=== PATIENT | male | born 1975 | race Caucasian/White ===

== ENCOUNTER 2020-11-03 18:20 | Outpatient (REF) | payer SELFPAY ==
[2020-11-03 13:10] LABS: HCT 48.6 % (40.0-50.0); HGB 16.4 g/dL (13.5-17.5); MCH 33.1 pg (27.0-33.0); MCHC 33.7 % (32.0-36.0); Platelet Count 295 10^3/uL (130-400); RBC 4.96 10^6/uL (4.36-5.78); RDW 11.9 % (11.8-14.1); RDW-SD 42.9 fL; WBC 6.99 10^3/uL (4.4-10.8)
[2020-11-03 13:34] LABS: Anion Gap 8.6 mmol/L (3-11); BUN 11 mg/dL (7-18); CO2 28.4 mmol/L (21.0-32.0); CREATININE 0.9 mg/dL (0.70-1.30); Calculated LDL 110 mg/dL (<100); Chloride 105 mmol/L (98-107); Cholesterol 186 mg/dL (<200); Glucose 85 mg/dL (74-106); HDL Cholesterol 59 mg/dL (40-60); Potassium 5.3 mmol/L (3.5-5.1); Sodium 142 mmol/L (136-145); Triglyceride 85 mg/dL (<150)
[2020-11-04 14:59] LABS: ANA Interpretation Positive (Negative); ANA Titer Pattern 1:160 Speckled
== END 2020-11-03 18:21 | disposition home or self-care (01) ==
LOC: NCHCN 18:20
PROVIDERS: Visit Provider Physician Assistant
DX: L20.9 Atopic dermatitis, unspecified (principal)
CPT/HCPCS: 80048; 80061; 85027; 86038; 86225

== ENCOUNTER 2020-12-09 12:13 | Outpatient (REF) | payer SELFPAY ==
--- NOTE | 2020-12-09 10:05 | SKI_PTH ---
PATIENT: Robert Pressley JR LOC: [facility]#:[id number] AGE/SX: 45/M ROOM: RE12/09/[address]: Ye Pierce : 1975 BED: DIS: 12/09/2020 SPEC #: [id number] RECD: 12/09/20 17:50 STATUS: NINFA REOskar #: [id number] SAUL: 12/09/20 10:[address]: Ye Pierce DEPT: Surgical Specimen RECD BY: Priti Zhu ENTERED: 12/09/20 17:51 SP TYPE: ALBINA UNDERWOOD DR: None Tissues: 1 - SKIN BIOPSY(SHAVE/PUNCH) Procedures: SKIN LEVEL 4 SPECIAL STAIN 1 Comments: [id number]
== END 2020-12-09 12:14 | disposition home or self-care (01) ==
LOC: NCHCN 12:13
PROVIDERS: Visit Provider Physician Assistant
DX: L30.8 Other specified dermatitis (principal); I87.2 Venous insufficiency (chronic) (peripheral)
CPT/HCPCS: 88305; 88312

== ENCOUNTER 2023-10-13 14:35 | Outpatient (REF) | payer SELFPAY ==
[2023-10-13 21:28] LABS: Abs Immature Grans 0.04 10^3/uL (0.0-0.06); Absolute Basophil Count 0.04 10^3/uL (0.0-0.2); Absolute Eosinophil Count 0.14 10^3/uL (0.0-0.7); Absolute Lymphocyte Count 1.27 10^3/uL (1.2-3.4); Absolute Monocyte Count 0.61 10^3/uL (0.1-0.8); Absolute Neutrophil Count 4.62 10^3/uL (1.2-6.7); Basophils % 0.6; Eosinophils % 2.1; HGB 16.7 g/dL (13.5-17.5); Immature Grans % 0.6; Lymphocytes % 18.9; MCH 32.8 pg (27.0-33.0); MCHC 33.4 % (32.0-36.0); MCV 98 fL (80-95); MPV 10.1 fL (8.0-11.0); Monocytes % 9.1; Neutrophils % 68.7; Platelet Count 316 10^3/uL (130-400); RBC 5.09 10^6/uL (4.36-5.78); RDW 11.9 % (11.8-14.1); RDW-SD 43.7 fL; WBC 6.72 10^3/uL (4.4-10.8)
[2023-10-13 21:39] LABS: ALT 34 U/L (16-63); AST 18 U/L (15-37); Albumin 4.1 g/dL (3.4-5.0); Alkaline Phosphatase 74 U/L (46-116); Anion Gap 10.2 mmol/L (3-11); BUN 14 mg/dL (7-18); Bilirubin, Total 0.6 mg/dL (0.2-1.0); CO2 25.8 mmol/L (21.0-32.0); CREATININE 0.8 mg/dL (0.70-1.30); Calcium 8.9 mg/dL (8.5-10.1); Chloride 103 mmol/L (98-107); Estimated GFR 111.22 (mL/min/1.73m2); Glucose 89 mg/dL (74-106); Potassium 4.7 mmol/L (3.5-5.1); Sodium 139 mmol/L (136-145)
[2023-10-13 21:40] LABS: C-Reactive Protein < 0.50 mg/dL (<or=0.5)
== END 2023-10-13 14:36 | disposition home or self-care (01) ==
LOC: LBN 14:35
PROVIDERS: Visit Provider Nurse Practitioner Family
DX: T14.8XXA Other injury of unspecified body region, initial encounter (principal); L08.9 Local infection of the skin and subcutaneous tissue, unspecified; L98.9 Disorder of the skin and subcutaneous tissue, unspecified; B96.89 Other specified bacterial agents as the cause of diseases classified elsewhere
CPT/HCPCS: 80053; 85025; 86140; 87070; 87205

== ENCOUNTER → 2023-10-18 02:35 | Outpatient (CLI) | payer SELFPAY ==
--- NOTE | 2023-10-18 14:11 | DI.RAD_ITS ---
Exam(s) XR ANKLE RT COMPLETE EXAM: XR ANKLE RT COMPLETE CLINICAL HISTORY: evaluate osteomyletis vs other etiology,wound infection,T14.8xxa,L08.9. TECHNIQUE: 2D digital imaging was performed of the right ankle. Three images were obtained. AP, la teral and oblique views were obtained. COMPARISON: No exams were available for comparison FINDINGS: BONES: No acute fracture is present. No bony destructive lesion is seen. There is a small plantar ca lcaneal spur. There is a small enthesophyte at the posterior calcaneus. JOINTS: The ankle mortise is normally aligned. SOFT TISSUE: Vascular calcifications are present. IMPRESSION: Unremarkable radiographs of the right ankle. No findings to suggest osteomyelitis. DATA REPOSITORY: RADIATION DOSE DELIVERED:
== END ==
PROVIDERS: Visit Provider Nurse Practitioner Family
DX: M25.571 Pain in right ankle and joints of right foot (principal); M77.31 Calcaneal spur, right foot; L08.89 Other specified local infections of the skin and subcutaneous tissue; S99.811A Other specified injuries of right ankle, initial encounter
CPT/HCPCS: 73610

== ENCOUNTER 2024-10-31 10:49 | Outpatient (CLI) | payer BC, SELFPAY ==
[2024-10-31 10:15] LABS: HGB 16.2 g/dL (13.5-17.5); MCH 33.3 pg (27.0-33.0); MCHC 33.8 % (32.0-36.0); MCV 99 fL (80-95); MPV 9.1 fL (8.0-11.0); Platelet Count 259 10^3/uL (130-400); RBC 4.86 10^6/uL (4.36-5.78); RDW 12.1 % (11.8-14.1); RDW-SD 44.2 fL; WBC 5.47 10^3/uL (4.4-10.8)
[2024-10-31 10:17] LABS: Bilirubin Negative (Negative); Blood Negative (Negative); Clarity Clear (Clear); Glucose Negative (Negative); Ketones Negative (Negative); Leukocyte Esterase Negative (Negative); Nitrite Negative (Negative); Urobilinogen 0.2 mg/dL (Up to 0.2)
[2024-10-31 10:27] LABS: Bacteria Negative HPF (Negative); C & S Indicated? No; Casts 0-2 Hyaline LPF (Negative); Crystals Negative HPF (Negative); Epithelial Cells Rare HPF (Negative); Mucus Trace (Negative); RBC 0-2 HPF (0-2); WBC Negative HPF (0-5)
[2024-10-31 10:47] LABS: ALT 36 U/L (16-63); AST 24 U/L (15-37); Alkaline Phosphatase 80 U/L (46-116); BUN 8 mg/dL (7-18); Bilirubin, Direct 0.2 mg/dL (0.0-0.2); Bilirubin, Total 0.8 mg/dL (0.2-1.0); CREATININE 0.8 mg/dL (0.70-1.30); Calcium 9.4 mg/dL (8.5-10.1); Chloride 105 mmol/L (98-107); Estimated GFR 110.53 (mL/min/1.73m2); Glucose 138 mg/dL (74-106); Potassium 4.1 mmol/L (3.5-5.1); Sodium 140 mmol/L (136-145); Total Protein 8.3 g/dL (6.4-8.2)
== END 2024-10-31 10:50 | disposition home or self-care (01) ==
LOC: LBO 10:51
PROVIDERS: PCP Physician Assistant; Visit Provider Nurse Practitioner Family
DX: Z13.9 Encounter for screening, unspecified (principal)
CPT/HCPCS: 36415; 80069; 80076; 85027; 81003; 81015

== ENCOUNTER 2024-11-07 02:28 | Outpatient (CLI) | payer BC, SELFPAY ==
--- NOTE | 2024-12-05 11:14 | W.PFT ---
Date of service: 11/07/24 Time of Service: 15:31 Pulmonary Function Test Result Indications: Chromium exposure Interpretation Spirometry: There is no airflow limitation. Impression Normal spirometry Clinical Correlation therefore is recommended.
== END 2024-11-07 02:29 | disposition home or self-care (01) ==
LOC: RT 02:28
PROVIDERS: PCP Physician Assistant; Visit Provider Student in an Organized Health Care Education/Training Program
DX: Z77.018 Contact with and (suspected) exposure to other hazardous metals; Z87.891 Personal history of nicotine dependence
CPT/HCPCS: 94010